=== PATIENT | female | born 1990 | race Caucasian/White ===

== ENCOUNTER 2023-09-05 19:24 | Emergency (ER) | payer OTHER, SELFPAY ==
--- NOTE | ~2023-09-05 | XR_ITS ---
XR nasal bones min 3V 09/05/2023 19:39 Indication: Nasal pain after trauma Procedure: 3 views nasal bones Comparison: No prior studies for comparison. Findings: No nasal fracture identified. Orbits are intact. Paranasal sinuses are pneumatized. Impression: 1: No acute abnormality of the nasal bones. Reviewed, dictated and finalized at location A. SERVICES DEVELOPER Impression: 1: No acute abnormality of the nasal bones.
[2023-09-05 19:42] VITALS: BP 122/86; PULSE 74; RESP 16; TEMP 36.5; O2SAT 100
--- NOTE | 2023-09-05 19:52 | ED.GENADULT ---
HPI - General Adult General Chief complaint: Head Injury Stated complaint: Injured Nose Time Seen by Provider: 09/05/23 19:45 Source: patient, RN notes reviewed and old records reviewed Mode of arrival: ambulatory Limitations: no limitations History of Present Illness HPI narrative: 33-year-old female who presents to [facility] with complaints of her 125 pound dog lifting its head up when she bent downward and hit her in her face around her nose and jaw area 3 days ago. Patient reports she noted a pop to her nose when it happened and a grinding to her jaw Patient reports that she has noted some swelling to her nose and has some swelling under her eyes and bruising across the bridge of her nose. Patient is concerned for fracture and wants X-ray done. MD complaint: concern for nasal fracture Onset (ago): day(s) (3) Severity scale (1-10): 3 Treatments prior to arrival: other (tylenol) Related Data Home Medications Medication Instructions Recorded Confirmed No Home Medications 09/05/23 09/05/23 Allergies Allergy/AdvReac Type Severity Reaction Status Date / Time amoxicillin [From Amoxil] Allergy Rash Verified 09/05/23 19:40 Review of Systems Review of Systems: CONSTITUTIONAL: Denies malaise, chills, sweats, or fever. EYES: Denies visual changes, redness, or discharge. ENT: Reports no rhinorrhea, congestion, mild nasal pain,no otalgia and no sore throat. CARDIOVASCULAR: Denies chest pain, palpitations, or edema. RESPIRATORY: Reports cough.? Denies dyspnea. GASTROINTESTINAL: Denies abdominal pain, nausea, vomiting, diarrhea SKIN: Denies rash or itching. bruising across bridge of nose with minimal swelling MUSCULOSKELETAL: Denies myalgia. NEUROLOGIC: Denies headache. All systems reviewed & are unremarkable except as noted in HPI and below PMFSH Social History Social History (Updated 09/06/23 @ 13:24 by Roopa Lehman NP) Smoking status: Never smoker Alcohol intake: current Alcohol use details: rare Substance use type: does not use Gender identity (if verbalized by the patient): Female Comments At time of signature, agree with nursing past medical, surgical, social and family history. There is no relevant family history pertinent to the presenting complaint Exam Narrative: GENERAL: Well-appearing, well-nourished, and in no acute distress. HEAD: Normocephalic EYES: PERRLA, conjunctivae clear, no nystagmus no acute bruising under eyes noted ENT: Nares clear, turbinates edematous and erythematous, clear discharge. Mucous membranes moist.bruising across bridge of nose no acute swelling, TM pearly knight with dull light reflex bilaterally; no tragal tenderness. Oropharynx erythematous without lesions. Tonsils not enlarged and without exudate, no drooling, no hoarseness, no trismus, uvula midline.no jaw pain or swelling noted. NECK: Supple. No lymphadenopathy CHEST: Clear to auscultation, breath sounds equal. No wheezing, rhonchi, rales, or stridor. No respiratory distress, speaks in full sentences.SAO2 100% on room air HEART: Regular rate and rhythm. No murmur heard. SKIN: Warm, dry, no rash. NEURO: Alert and oriented x3. PSYCH: Normal mood and affect Course Course Emergency Course: Patient is aware of diagnosis, understands and agrees to treatment plan.? Anticipatory guidance given.? Patient agrees to follow-up as directed and is aware of reasons to seek care at the emergency department. Portions of this record may have been created with voice recognition software Level of Care: Express Care Visit Vital Signs Vital signs: Vital Signs Temperature 36.5 C 09/05/23 19:42 Pulse Rate 74 09/05/23 19:42 Respiratory Rate 16 09/05/23 19:42 Blood Pressure 122/86 09/05/23 19:42 Pulse Oximetry 100 09/05/23 19:42 Temperature 36.5 C 09/05/23 19:42 Pulse Rate 74 09/05/23 19:42 Respiratory Rate 16 09/05/23 19:42 Blood Pressure 122/86 08/19
== END 2023-09-05 20:02 | disposition home or self-care (01) ==
PROVIDERS: Emergency Provider Registered Nurse
DX: S00.33XA Contusion of nose, initial encounter (principal); W54.1XXA Struck by dog, initial encounter
CPT/HCPCS: 70160; 99213; G0463